=== PATIENT | female | born 1990 | race Hispanic/Latino ===

== ENCOUNTER → 2020-09-20 | Outpatient (CLI) | payer OTHER | END | disposition home or self-care (01) | LOC: RAH 10:52 | PROVIDERS: ATTEND Family Medicine | DX: N60.12 Diffuse cystic mastopathy of left breast (principal); R92.2 Inconclusive mammogram ==

== ENCOUNTER 2021-04-14 12:28 | Observation (INO) | payer OTHER ==
[~2021-04-14] VITALS: Ht 157.5 cm; Wt 96.2 kg
== END 2021-04-14 13:30 | disposition home or self-care (01) ==
LOC: LDH 12:28
PROVIDERS: ADMIT Obstetrics & Gynecology; ATTEND Obstetrics & Gynecology
DX: O26.892 Other specified pregnancy related conditions, second trimester (principal); R10.32 Left lower quadrant pain; Z3A.22 22 weeks gestation of pregnancy; W18.30XA Fall on same level, unspecified, initial encounter; Y93.89 Activity, other specified; Y92.89 Other specified places as the place of occurrence of the external cause; Y99.8 Other external cause status
CPT/HCPCS: 59025; G0378; G0379

== ENCOUNTER 2021-07-26 00:13 | Inpatient (IN) | payer BC, OTHER ==
[~2021-07-26] VITALS: Ht 162.6 cm; Wt 101.2 kg
[2021-07-26] MEDS ORDERED: VALA500T PO (00:37)
[2021-07-26] MEDS ORDERED: PREN-196 PO (00:37)
[2021-07-26 01:07] LABS: APPEARANCE,URINE Cloudy (CLEAR); BILIRUBIN,URINE Negative (NEGATIVE); COLOR,URINE Yellow (YELLOW); GLUCOSE, URINE (UA) Negative (NEGATIVE); KETONES,URINE Trace mg/dL (NEGATIVE); LEUKOCYTE ESTERASE ,URINE Small (NEGATIVE); NITRATE,URINE Negative (NEGATIVE); OCCULT BLOOD,URINE Negative (NEGATIVE); PH,URINE 6.5 (5.0-8.0); PROTEIN,URINE Negative (NEGATIVE)
[2021-07-26 01:14] LABS: BACTERIA,URINE None Seen /HPF (None Seen); MUCUS,URINE Rare LPF (None Seen); RBC,URINE None Seen /HPF (0-1); SQUAMOUS EPITHELIAL CELL,UR Rare /HPF (0-2); WBC,URINE 0-1 /HPF (0-1)
[2021-07-26] MEDS ORDERED: LACTATED RINGERS 1000ML IV SCH (02:00)
[2021-07-26 02:28] LABS: AMPHET/METH SCREEN,URINE NEGATIVE (NEGATIVE); BARBITURATE SCREEN, URINE NEGATIVE (NEGATIVE); BENZODIAZEPINES SCREEN,URINE NEGATIVE (NEGATIVE); CANNABINOID SCREEN,URINE NEGATIVE (NEGATIVE); COCAINE SCREEN,URINE NEGATIVE (NEGATIVE); OPIATE SCREEN,URINE NEGATIVE (NEGATIVE); PHENCYCLIDINE SCREEN,URINE NEGATIVE (NEGATIVE)
[2021-07-26 06:39] VITALS: BP 107/66
[2021-07-26] MEDS ORDERED: CALDOLOR 800MG+NS 250ML 250 ML IV PRN (08:30)
[2021-07-26] MEDS ORDERED: CEFAZOLIN SODIUM 1 GM VIAL IVP PRN (08:30)
[2021-07-26 08:49] LABS: HEMATOCRIT 33.5 % (36-48); MEAN CORPUSCULAR HEMOGLOBIN 31.8 pg (27.0-33.0); MEAN CORPUSCULAR HGB CONC 33.1 g/dL (32.0-36.0); RED BLOOD CELL COUNT(AUTO) 3.49 MIL/uL (4.00-5.50); RED CELL DISTRIBUTION WIDTH 14.8 % (11.0-15.5); WHITE BLOOD COUNT (AUTO) 7.8 K/uL (4.8-10.8)
[2021-07-26] MEDS ORDERED: MORPHINE PF 100MG/10ML AMP IV ONE (09:22)
[2021-07-26] MEDS ORDERED: FENTANYL CITRATE PF 50 MCG/1 ML 2ML VIAL ONE (09:22)
[2021-07-26] MEDS ORDERED: ONDANSETRON 4MG INJ ONE (09:24)
[2021-07-26] MEDS ORDERED: CEFAZOLIN SODIUM 3 GM VIAL IV ONE (09:30)
[2021-07-26] MEDS ORDERED: OXYTOCIN 10 USP UNITS/ML ONE ×2 (09:40→09:56)
[2021-07-26] MEDS ORDERED: EPHEDRINE SULFATE 50 MG/ML AMPULE ONE (09:43)
[2021-07-26] MEDS ORDERED: DEXAMETHASONE SOD PHOSPHATE 10MG/ML 1ML VIAL ONE (09:43)
[2021-07-26] MEDS ORDERED: PHENYLEPHRINE HCL 10 MG/ML 1ML VIAL IV ONE (09:45)
[2021-07-26] MEDS ORDERED: OXYTOCIN-LR 20 UNITS/1000 ML 1,000 ML IV PRN (11:00)
[2021-07-26] MEDS ORDERED: MEPERIDINE-PF 75 MG/ML SYG IM PRN (11:00)
[2021-07-26] MEDS ORDERED: PROMETHAZINE HCL 25 MG/ML 1ML AMPULE IM PRN (11:00)
[2021-07-26] MEDS ORDERED: 0.9%NACL 10ML VIAL IVP PRN (11:00)
[2021-07-26 11:10] LABS: RAPID PLASMA REAGIN NONREACTIVE (NONREACTIVE)
[2021-07-26] MEDS ORDERED: LORATADINE 10 MG TABLET PO SCH (12:00)
[2021-07-26 12:29] VITALS: BP 113/72
[2021-07-26] MEDS ORDERED: NALOXONE HCL 0.4 MG/1 ML ML IVP PRN ×2 (14:00)
[2021-07-26] MEDS ORDERED: ONDANSETRON 4MG INJ IVP PRN (14:00)
[2021-07-26] MEDS ORDERED: EPHEDRINE SULFATE 50 MG/ML AMPULE IVP PRN (14:00)
[2021-07-26] MEDS ORDERED: DiphenhydrAMINE HCL 50 MG/ML VIAL IVP PRN (14:00)
[2021-07-26 16:30] VITALS: BP 96/56
[2021-07-26] MEDS: CEFAZOLIN SODIUM 1 GM VIAL IVP SCH (18:55)
[2021-07-26 19:58] VITALS: BP 97/56
[2021-07-26] MEDS ORDERED: ACETAMINOPHEN WITH CODEINE 1 TAB TAB PO PRN (21:00)
[2021-07-26 23:02] VITALS: BP 90/54
[2021-07-27] MEDS: DEXTROSE 5 %-0.45 % NACL 1,000 ML IV PRN ×2 (00:59→06:49)
[2021-07-27] MEDS: CEFAZOLIN SODIUM 1 GM VIAL IVP SCH (02:28)
[2021-07-27 03:13] VITALS: BP 99/54
[2021-07-27 06:52] LABS: HEMATOCRIT 31.4 % (36-48); MEAN CORPUSCULAR HEMOGLOBIN 31.4 pg (27.0-33.0); MEAN CORPUSCULAR HGB CONC 33.4 g/dL (32.0-36.0); RED BLOOD CELL COUNT(AUTO) 3.34 MIL/uL (4.00-5.50); RED CELL DISTRIBUTION WIDTH 14.5 % (11.0-15.5); WHITE BLOOD COUNT (AUTO) 13.1 K/uL (4.8-10.8)
[2021-07-27 07:10] VITALS: BP 88/55
[2021-07-27] MEDS ORDERED: ACETAMINOPHEN WITH CODEINE 1 TAB TAB PO PRN (08:30)
[2021-07-27] MEDS ORDERED: ACETAMINOPHEN 500 MG TABLET PO PRN (08:30)
[2021-07-27] MEDS ORDERED: BISACODYL 10 MG SUPP.RECT RC PRN (08:30)
[2021-07-27] MEDS ORDERED: LANOLIN 30GM OINTMENT TP PRN (08:30)
[2021-07-27] MEDS ORDERED: HYDROCODONE/ACETAMINOPHEN 5/325 MG TAB PO PRN (08:30)
[2021-07-27] MEDS ORDERED: AMMONIA 1 EA AMP IH ONE (09:24)
[2021-07-27] MEDS: SIMETHICONE 80 MG TAB.CHEW PO PRN ×3 (10:04→20:44)
[2021-07-27] MEDS: DOCUSATE SODIUM 100 MG CAP PO SCH ×2 (10:04→20:44)
[2021-07-27] MEDS: IBUPROFEN 800 MG TAB PO SCH ×2 (10:05→15:58)
[2021-07-27 12:15] VITALS: BP 92/51
[2021-07-27 16:00] VITALS: BP 99/59
[2021-07-27 19:50] VITALS: BP 98/57
[2021-07-27 23:00] VITALS: BP 86/57
[2021-07-28] MEDS: IBUPROFEN 800 MG TAB PO SCH ×2 (00:09→09:12)
[2021-07-28 02:55] VITALS: BP 96/54
[2021-07-28 06:45] VITALS: BP 93/56
[2021-07-28] MEDS: SIMETHICONE 80 MG TAB.CHEW PO PRN (09:10)
[2021-07-28] MEDS: DOCUSATE SODIUM 100 MG CAP PO SCH (09:10)
[2021-07-28 11:12] VITALS: BP 94/56
== END 2021-07-28 14:05 | disposition home or self-care (01) | DRG 788 ==
LOC: EDH 00:13 → LDH 00:14 → OBSVTOIN 00:14 → EDH 00:26 → WSH 12:30
PROVIDERS: ADMIT Obstetrics & Gynecology; ATTEND Obstetrics & Gynecology
PROC: 10D00Z1 Extraction of Products of Conception, Low, Open Approach (ICD-10-PCS; principal; 2021-07-26 09:20)
DX: O34.211 Maternal care for low transverse scar from previous cesarean delivery (principal); O62.2 Other uterine inertia; Z3A.37 37 weeks gestation of pregnancy; Z37.0 Single live birth; O69.81X0 Labor and delivery complicated by cord around neck, without compression, not applicable or unspecified
CPT/HCPCS: 36415; 59510; 80305; 81001; 85027; 86592; 86701; 86850; 86900; 86901; 87340; 87390; 96360; 96361; A4344; A4606; G0378; J0690; J1100; J1741; J2175; J2274; J2370; J2405; J2550; J2590; J3010; J3490

== ENCOUNTER 2022-04-01 18:38 | Emergency (ER) | payer BC, OTHER ==
[~2022-04-01] VITALS: Ht 162.6 cm; Wt 86.2 kg
[~2022-04-01 18:38] MED LIST: PREN-196 PO; VALA500T PO
[2022-04-01 19:25] LABS: APPEARANCE,URINE CLEAR (CLEAR); BILIRUBIN,URINE NEGATIVE (NEGATIVE); COLOR,URINE LIGHT-YELLOW (YELLOW); GLUCOSE, URINE (UA) NEGATIVE (NEGATIVE); KETONES,URINE NEGATIVE (NEGATIVE); LEUKOCYTE ESTERASE ,URINE NEGATIVE Leu/uL (NEGATIVE); NITRATE,URINE NEGATIVE (NEGATIVE); OCCULT BLOOD,URINE SMALL (NEGATIVE); PROTEIN,URINE NEGATIVE (NEGATIVE); UROBILINOGEN,URINE 0.2 mg/dL (0.2-1.0)
[2022-04-01 19:28] LABS: HCG,QUALITATIVE URINE NEGATIVE (NEGATIVE); SQUAMOUS EPITHELIAL CELL,UR RARE /HPF (0-2)
[2022-04-01] MEDS ORDERED: 0.9%NACL 1000ML 2,000 ML IV ONE (19:30)
[2022-04-01 19:36] LABS: BASOPHILS % (AUTO) 0.3 % (0.0-5.0); EOSINOPHILS % (AUTO) 1.4 % (0.0-8.0); HEMATOCRIT 34.6 % (36-48); LYMPHOCYTES % (AUTO) 28.7 % (21.0-51.0); MEAN CORPUSCULAR HEMOGLOBIN 30.2 pg (27.0-33.0); MEAN CORPUSCULAR HGB CONC 33.5 g/dL (32.0-36.0); MEAN CORPUSCULAR VOLUME 90.1 fL (79-99); MONOCYTES % (AUTO) 5.5 % (3.0-13.0); NEUTROPHILS % (AUTO) 63.8 % (40.0-77.0); PLATELET COUNT (AUTO) 265 K/uL (130-400); RED BLOOD CELL COUNT(AUTO) 3.84 MIL/uL (4.00-5.50); RED CELL DISTRIBUTION WIDTH 13.2 % (11.0-15.5); WHITE BLOOD COUNT (AUTO) 7.8 K/uL (4.8-10.8)
[2022-04-01 19:49] LABS: CREATININE 0.7 mg/dL (0.5-1.5); POTASSIUM 3.7 mmol/L (3.5-5.1)
[2022-04-01 19:54] LABS: ALBUMIN 3.5 g/dL (3.5-5.0); TOTAL PROTEIN, SERUM 6.6 g/dL (6.0-8.3)
[2022-04-01 19:55] VITALS: BP 107/66
== END 2022-04-01 20:32 | disposition home or self-care (01) ==
LOC: EDH 18:38
DX: N92.1 Excessive and frequent menstruation with irregular cycle (principal); R11.0 Nausea; Z98.890 Other specified postprocedural states
CPT/HCPCS: 99283; 96360; 80053; 85025; 81001; 81025; 36415; J7030